=== PATIENT | female | born 1965 | race Caucasian/White ===

== ENCOUNTER 2020-03-22 09:18 | Outpatient (CLI) | payer BC, SELFPAY ==
--- NOTE | 2020-03-22 09:25 | MM_ITS ---
WS: [id number] BILATERAL DIGITAL SCREENING MAMMOGRAPHY WITH CAD CLINICAL INFORMATION: SCREENING HISTORY: Screening mammogram. No current complaints. COMPARISON: TECHNIQUE: Bilateral CC and MLO views. FINDINGS: The breasts are composed of heterogeneous fibroglandular density tissue, which can limit the detectio n of small underlying mass lesions. No suspicious mass, asymmetry, calcifications, or architectural d istortion. No evidence of malignancy. Vascular calcification. Lucent centered calcifications. MM/[id number] IMPRESSION: BI-RADS: 2-Benign FOLLOW UP: 1 Year Follow-up Recommend return to annual screening mammography.
== END 2020-03-22 09:19 | disposition home or self-care (01) ==
LOC: RADSHAW 09:22
PROVIDERS: PCP Family Medicine; Visit Provider Family Medicine
DX: Z12.31 Encounter for screening mammogram for malignant neoplasm of breast (principal)
CPT/HCPCS: 77067

== ENCOUNTER → 2021-01-18 15:59 | Outpatient (BNVA) | payer BC, OTHER, SELFPAY | PROVIDERS: PCP Family Medicine; Visit Provider Nurse Practitioner | DX: Z20.822 Contact with and (suspected) exposure to COVID-19 (principal); J98.01 Acute bronchospasm | CPT/HCPCS: 87635 ==

== ENCOUNTER → 2021-04-02 14:22 | Outpatient (BNVA) | payer OTHER, BC, SELFPAY | PROVIDERS: PCP Family Medicine; Visit Provider Nurse Practitioner Family | DX: R30.0 Dysuria (principal); R50.9 Fever, unspecified; R59.1 Generalized enlarged lymph nodes; I10 Essential (primary) hypertension | CPT/HCPCS: 80053; 81000; 85025; 86618; 86666; 86757 ==

== ENCOUNTER → 2021-10-30 08:21 | Outpatient (BNVA) | payer SELFPAY | PROVIDERS: PCP Family Medicine; Visit Provider Dermatology | DX: Z01.89 Encounter for other specified special examinations (principal) ==

== ENCOUNTER → 2021-10-31 15:13 | Outpatient (BNVA) | payer OTHER, BC, SELFPAY | PROVIDERS: PCP Family Medicine; Visit Provider Nurse Practitioner Family | DX: R55 Syncope and collapse (principal); I10 Essential (primary) hypertension | CPT/HCPCS: 80053; 84484; 85025 ==

== ENCOUNTER 2021-11-02 14:14 | Outpatient (CLI) | payer OTHER, SELFPAY ==
--- NOTE | 2021-11-02 14:18 | MM_ITS ---
WS: [id number] BILATERAL 3D TOMOSYNTHESIS DIGITAL SCREENING MAMMOGRAPHY WITH CAD CLINICAL INFORMATION: SCREENING HISTORY: Screening mammogram. Bilateral breast soreness. COMPARISON: March 22, 2020 TECHNIQUE: Bilateral CC and MLO views. FINDINGS: The breasts are composed of heterogeneous fibroglandular density tissue, which can limit the detectio n of small underlying mass lesions. Incidental punctate calcifications. No suspicious mass, asymmetry , calcifications, or architectural distortion. No evidence of malignancy. MM/[id number] IMPRESSION: BI-RADS: 2-Benign FOLLOW UP: 1 Year Follow-up Recommend return to annual screening mammography.
== END 2021-11-02 14:15 | disposition home or self-care (01) ==
LOC: RADSHAW 14:18
PROVIDERS: PCP Family Medicine; Visit Provider Family Medicine
DX: Z12.31 Encounter for screening mammogram for malignant neoplasm of breast (principal)
CPT/HCPCS: 77063; 77067

== ENCOUNTER → 2022-03-05 14:00 | Outpatient (BNVA) | payer OTHER, SELFPAY | PROVIDERS: PCP Family Medicine; Visit Provider Nurse Practitioner Family | DX: M54.9 Dorsalgia, unspecified (principal) | CPT/HCPCS: 81000 ==

== ENCOUNTER → 2022-10-28 08:32 | Outpatient (BNVA) | payer OTHER, SELFPAY | PROVIDERS: PCP Family Medicine; Visit Provider Family Medicine | DX: Z00.00 Encounter for general adult medical examination without abnormal findings (principal); I10 Essential (primary) hypertension; Z82.49 Family history of ischemic heart disease and other diseases of the circulatory system | CPT/HCPCS: 80053; 80061; 84443; 85025 ==

== ENCOUNTER 2023-03-16 11:49 | Emergency (ER) | payer OTHER, SELFPAY ==
[2023-03-16 12:25] VITALS: BP 155/100; PULSE 107; RESP 14; O2SAT 100
--- NOTE | 2023-03-16 12:52 | W.ED.EXTPRO ---
HPI - Extremity Problem General: Chief complaint: Extremity Injury, Lower Stated complaint: needs leg to get checked out Time Seen by Provider: 03/16/23 12:29 History of Present Illness: Patient presents to the ER with complaint of right knee pain. Approximately 1 week ago patient tripped sprained her knee and since then she has had a big lump in the posterior popliteal fossa area. Patient is worried about a blood clot. Patient states she has known knee arthritis and this pain is different than her normal usual pain. Patient is not on any type of blood thinners at this moment. Patient has never had a blood clot before. Review of Systems General: Reports: 10 or more systems reviewed and unremarkable except in HPI and below PFSH ED PFSH: Medical History Essential (primary) hypertension Panic attack Surgical History History of section 2 times History of hysterectomy History of tonsillectomy and adenoidectomy Family History Other Heart attack Denies family history of Diabetes Dementia Cancer Hypertension Stroke Social History Smoking and tobacco status: current every day smoker Second hand smoke exposure: No Smoking risk assessment/counseling performed?: Yes Alcohol intake: current Alcohol intake frequency: few times a week Alcohol type: beer Desire information about alcohol rehabilitation?: No Counseling given: No Substance/Drug Use: unknown Desire information about substance/drug rehabilitation?: No Counseling given: No Adopted: No Caregiver/support person: No Lives independently: Yes Household members: spouse Housing: House Marital status: Number of children: 2 service: No Current occupational status: employed Current occupation: [employer] Pets and animals: Yes Pets & animals: farm animals Do you think of yourself as: Straight/Heterosexual Current gender identity: Female Physical Exam Const: COMMON NORMALS: no acute distress, average body habitus, patient oriented x3, no limitations, healthy appearing, alert and well nourished HENMT: COMMON NORMALS: normocephalic, atraumatic, hearing grossly normal bilaterally, external ears normal, Normal external nose present and moist oral mucous membranes HEAD & SCALP: normocephalic and atraumatic NOSE: Normal external nose present EXTERNAL EAR: Yes external ears normal Neck/C-Spine: COMMON NORMALS: full ROM, no lymphadenopathy, supple, no meningeal signs, no JVD and Thyroid normal THYROID: Thyroid normal Lymph: LYMPHATIC: no lymphadenopathy noted Chest: COMMONS NORMALS: normal inspection of the chest and normal palpation of entire chest wall Resp: COMMON NORMALS: normal respiratory effort, No retractions, No use of accessory muscles and clear to auscultation bilaterally AUSCULTATION: clear to auscultation bilaterally Cardio: COMMON NORMALS: no JVD, regular rate, regular rhythm, S1 normal heart sound present, S2 normal heart sound present, No gallops present (Cardio), No clicks present (Cardio) and No murmurs present (Cardio) RATE: regular rate RHYTHM: regular rhythm HEART SOUNDS: S1 normal heart sound present and S2 normal heart sound present GI: COMMON NORMALS: Normal to inspection, nondistended, normoactive bowel sounds present, Soft to palpation, non-tender, No hepatosplenomegaly present and no masses PALPATION: Yes Soft to palpation and Yes No hepatosplenomegaly present : COMMON NORMALS: Yes no CVA tenderness BLADDER/KIDNEY EXAM: Yes no CVA tenderness Back/Pelvis: COMMON NORMALS: no CVA tenderness Extremity: NARRATIVE EXTREMITY EXAM: Soft tissue prominence palpated in right popliteal fossa region, very tender to palpation. Neuro: COMMON NORMALS: patient oriented x3 SENSORIUM/ORIENTATION: Yes alert MENINGEAL SIGNS: Yes no meningeal signs Course Vital Signs: Vital signs: Vital Signs Pulse Rate 97 03/16/23 13:06 Respiratory Rate 14 03/16/23 12:25 Blood Pressure 134/108 03/16/23 13:06 Pulse Oximetry 96 03/16/23 13:06 Oxygen Delivery Me thod Room Air 03/16/23 13:06 MDM - Extremity (Nontraumatic) Medical Decision Making Patient presents to the ER with complaints of right knee pain and she states she has a blood clot. Physical exam was performed lab work was obtained a D-dimer was negative which rules out the likelihood of clot. It is felt that this knee is just drained with a possible Hernandez's cyst. This was explained to the patient in detail patient be discharged home to continue [id number] medicine and follow-up with her PCP in approximately 1 week as needed. Differential Diagnosis Unlikely herpes zoster, gout, cellulitis, superficial thrombophlebitis, deep venous thrombosis of upper extremity, lower extremity edema or deep vein thrombosis of lower extremity Medical Records I reviewed the patient's medical records. Lab Data I reviewed the patient's lab results. Laboratory Results D-Dimer 0.56 ug/mIFEU (0-0.59) 03/16/23 13:00 Discharge Plan Discharge Patient Disposition: Home Clinical Impression: Acute pain of right knee Condition: Stable Prescriptions: No Action albuterol sulfate [ProAir HFA] 90 mcg/actuation HFA aerosol inhaler 2 puff inhalation Q6H PRN (Reason: shortness of breath or wheezing) Qty: 8.5 5RF lisinopril 10 mg tablet 10 mg PO DAILY Qty: 90 3RF Fish Oil 60-90-500 mg Capsule 1 cap PO DAILY Elderberry [employer] [facility] 45-3.75-50 mg Tablet,Chewable 1 tab PO DAILY Discharge Orders: Discharge ED (Routine); Ordered 03/16/23 Ordered By: Abebe Bush Referrals: Flakito Lew DO [Primary Care Provider] - 1 week Patient Instructions: Knee Pain (ED) Activity Restrictions/Additional Instructions: Please continue [id number] pain medicine as directed, continue rest, ice, heat, stretching, please follow-up with your family practice physician in the next 7 days or sooner as needed. Coding Level of Care Code ED Recruitment Specialist for Isaac Hallman
[2023-03-16 13:06] VITALS: BP 134/108; PULSE 97; O2SAT 96
[2023-03-16 13:24] LABS: D Dimer 0.56 ug/mIFEU (0-0.59)
[2023-03-16 13:45] VITALS: BP 135/85; PULSE 88; RESP 18; O2SAT 96
== END 2023-03-16 13:45 | disposition home or self-care (01) ==
PROVIDERS: Emergency Provider Emergency Medicine; PCP Family Medicine
DX: M25.561 Pain in right knee (principal); F17.210 Nicotine dependence, cigarettes, uncomplicated; I10 Essential (primary) hypertension
CPT/HCPCS: 36415; 85378; 99283

== ENCOUNTER → 2023-03-18 08:19 | Outpatient (BNVA) | payer OTHER, SELFPAY | PROVIDERS: PCP Family Medicine; Visit Provider Nurse Practitioner Family | DX: R30.0 Dysuria (principal); M25.561 Pain in right knee; G89.29 Other chronic pain; M25.461 Effusion, right knee; S89.91XA Unspecified injury of right lower leg, initial encounter; X58.XXXA Exposure to other specified factors, initial encounter | CPT/HCPCS: 73562; 81000 ==

== ENCOUNTER → 2023-05-31 10:29 | Outpatient (BNVA) | payer OTHER, SELFPAY | PROVIDERS: PCP Family Medicine; Visit Provider Nurse Practitioner Family | DX: I10 Essential (primary) hypertension (principal) | CPT/HCPCS: 80053; 80061; 83036; 84443; 85025 ==

== ENCOUNTER 2023-06-13 07:44 | Outpatient (CLI) | payer OTHER, MEDICAID, SELFPAY ==
--- NOTE | 2023-06-13 08:00 | US_ITS ---
WS: [id number] RIGHT UPPER QUADRANT ULTRASOUND HISTORY: R10.10 - Upper abdominal pain, unspecified COMPARISON: None available. Liver: 13.2 cm in length. Normal size liver and echogenicity. No bile duct dilatation or mass. Portal Vein: Normal hepatopetal flow with monophasic waveform. Gallbladder: Normally distended gallbladder with no stones or wall thickening. CBD: 0.3 cm Pancreas: Normal size and echogenicity. Right kidney: 11.1 cm in length. Normal size and echogenicity. No hydronephrosis or mass. Aorta and IVC: Unremarkable abdominal aorta and IVC. No ascites. IMPRESSION: Normal RIGHT upper quadrant ultrasound.
== END 2023-06-13 07:45 | disposition home or self-care (01) ==
LOC: RAD 07:48
PROVIDERS: PCP Family Medicine; Visit Provider Nurse Practitioner Family
DX: R10.10 Upper abdominal pain, unspecified (principal)
CPT/HCPCS: 76705

== ENCOUNTER → 2023-10-10 14:40 | Outpatient (BNVA) | payer MEDICAID, SELFPAY | PROVIDERS: PCP Family Medicine; Visit Provider Nurse Practitioner | DX: R39.9 Unspecified symptoms and signs involving the genitourinary system (principal) | CPT/HCPCS: 81000 ==

== ENCOUNTER → 2023-12-01 14:50 | Outpatient (BNVA) | payer MEDICAID, SELFPAY | PROVIDERS: PCP Family Medicine; Visit Provider Nurse Practitioner Family | DX: R39.9 Unspecified symptoms and signs involving the genitourinary system (principal) | CPT/HCPCS: 81000; 87086 ==

== ENCOUNTER → 2023-12-02 10:33 | Outpatient (BNVA) | payer MEDICAID, SELFPAY | PROVIDERS: PCP Family Medicine; Visit Provider Family Medicine | DX: Z13.6 Encounter for screening for cardiovascular disorders (principal); E55.9 Vitamin D deficiency, unspecified; I10 Essential (primary) hypertension; F41.9 Anxiety disorder, unspecified; D69.6 Thrombocytopenia, unspecified; M62.838 Other muscle spasm; E03.9 Hypothyroidism, unspecified | CPT/HCPCS: 80053; 80061; 82607; 82652; 84443; 85025 ==

== ENCOUNTER → 2024-04-22 15:43 | Outpatient (BNVA) | payer MEDICAID, SELFPAY | PROVIDERS: PCP Family Medicine; Visit Provider Family Medicine | DX: D69.6 Thrombocytopenia, unspecified (principal); R53.83 Other fatigue; E03.9 Hypothyroidism, unspecified | CPT/HCPCS: 80053; 82607; 84443; 85025 ==

== ENCOUNTER → 2024-12-22 14:24 | Outpatient (BNVA) | payer MEDICAID, SELFPAY | PROVIDERS: PCP Family Medicine; Visit Provider Family Medicine | DX: R39.9 Unspecified symptoms and signs involving the genitourinary system (principal) | CPT/HCPCS: 81000; 87086 ==

== ENCOUNTER → 2024-12-30 16:15 | Outpatient (BNVA) | payer MEDICAID, SELFPAY | PROVIDERS: PCP Family Medicine; Visit Provider Family Medicine | DX: Z00.00 Encounter for general adult medical examination without abnormal findings (principal); E03.9 Hypothyroidism, unspecified | CPT/HCPCS: 80053; 80061; 82306; 82607; 84443; 85025 ==